=== PATIENT | male | born 1975 | race Caucasian/White ===

== ENCOUNTER 2022-03-27 17:48 | Emergency (ER) | payer BC ==
[2022-03-27 18:11] VITALS: BP 126/84; PULSE 86; O2SAT 98
[2022-03-27] MEDS ORDERED: Adacel Vial IM ONE ×2 (18:54→19:00)
--- NOTE | 2022-03-27 19:00 | ERPHSYRPT ---
- History of Present Illness Source: patient Exam Limitations: no limitations Patient Subjective Stated Complaint: Pt states "I cut my thumb." Triage Nursing Assessment: Pt presented alert and oriented X3, skin wpd. pt ambulates with an upright steady gait, able to speak in clear full sentences pt in no apparent respiratory distress. pt has laceration noteg to left thumb, no bleeding at this time. Physician History: 46 yo wm cut L 1st digit dorsal nail while field stripping a deer. Pt is R handed and denies other injuries. Tetanus to be given in the ER. Pain is minimal. He has a small distal finger split which is old. Occurred: just prior to arrival Method of Injury: incised Quality: other (Mild pain) Severity of Pain-Max: moderate Severity of Pain-Current: mild Extremities Pain Location: thumb: left Modifying Factors: Improves With: nothing Associated Symptoms: none Allergies/Adverse Reactions: cefazolin Allergy (Severe, Verified 03/27/22 18:11) Swelling Home Medications: Tamsulosin HCl 0.4 mg [Flomax 0.4 MG] 0.4 mg PO DAILY 03/27/22 [History] Hx Tetanus, Diphtheria Vaccination/Date Given: No Hx Influenza Vaccination/Date Given: No Hx Pneumococcal Vaccination/Date Given: No Immunizations Up to Date: Yes Travel Risk - International Travel Have you traveled outside of the country in past 3 weeks: No - Coronavirus Screening Are you exhibiting any of the following symptoms?: No Close contact with a COVID-19 positive Pt in past 14-21 Days: No - Vaccine Status Have you recieved a Covid-19 vaccination: No - Review of Systems Constitutional: No Symptoms Eyes: No Symptoms Ears, Nose, & Throat: No Symptoms Respiratory: No Symptoms Cardiac: No Symptoms Abdominal/Gastrointestinal: No Symptoms Genitourinary Symptoms: No Symptoms Skin: No Symptoms Neurological: No Symptoms Psychological: No Symptoms Endocrine: No Symptoms Hematologic/Lymphatic: No Symptoms Immunological/Allergic: No Symptoms - Past Medical History Pertinent Past Medical History: Yes Other Medical History: prostate - Past Surgical History Past Surgical History: Yes Other Surgical History: right hand. chin. right toe. hernia - Social History Smoking Status: Never smoker Exposure to second hand smoke: No Drug Use: none Patient Lives Alone: No - Nursing Vital Signs Nursing Vital Signs: Initial Vital Signs Temperature 97.5 F 03/27/22 18:06 Pulse Rate 86 03/27/22 18:06 Respiratory Rate 20 03/27/22 18:06 Blood Pressure 126/84 03/27/22 18:06 O2 Sat by Pulse Oximetry 98 03/27/22 18:06 Pain Scale Pain Intensity 0 WNL - Physical Exam General Appearance: no apparent distress Eyes, Ears, Nose, Throat Exam: normal ENT inspection, TMs normal, pharynx normal, moist mucous membranes Neck Exam: normal inspection, non-tender, supple, full range of motion, No Brudzinski, No Kernig's, No meningismus, No carotid bruit Cardiovascular/Respiratory Exam: normal breath sounds, regular rate/rhythm, heart sounds normal Abdominal Exam: non-tender, soft Back Exam: normal inspection, normal range of motion, No CVA tenderness, No vertebral tenderness Shoulder Exam: normal inspection, non-tender, no evidence of injury Elbow/Forearm Exam: normal inspection, non-tender, no evidence of injury Wrist Exam: normal inspection, non-tender, no evidence of injury Hand Exam: nail injury (Dorsal laceration, 1cm ,perpendicularly oriented to axis of finger/Good hemostasis/Good distal capillary return and sensation/No need for repair) DTR - Upper Extremity Exam: bicep (R): 2+, bicep (L): 2+ Neuro/Tendon Exam: normal sensation, normal motor functions, normal tendon functions, responds to pain, no evidence tendon injury, No motor deficit, No sensory deficit Mental Status Exam: alert, oriented x 3, cooperative Skin Exam: normal color, warm, dry SpO2 Interpretation: normal SpO2: 98 O2 Delivery: Room Air - Course Nursing assessment & vital signs reviewed: Yes - Progress Progress Note: 03/27/22 19:00 Tdap 03/27/22 19:01 No need for repair or to remove nail. Pt alerted that he might loose nail Counseled pt/family regarding: diagnosis, need for follow-up - Departure Departure Disposition: Home Clinical Impression: Nailbed laceration, finger Condition: Stable Critical Care Time: No Referrals: MARISOL KELLOGG MD [Primary Care Provider] - Follow up/PCP as directed Instructions: Common Finger Injuries (DC) Additional Instructions: Wash laceration with soap/water twice a day Start doxycycline twice a day for 1 week Watch for signs of infection-redness/Increasing pain/pus/temperature greater than 100.5 There is a small possibility that nail will be lost Prescriptions: Doxycycline Monohydrate 100 mg PO BID #14 cap
== END 2022-03-27 19:14 | disposition home or self-care (01) ==
LOC: ED 17:48
DX: S61.112A Laceration without foreign body of left thumb with damage to nail, initial encounter (principal); W26.0XXA Contact with knife, initial encounter; Z79.899 Other long term (current) drug therapy; Z28.310 Unvaccinated for COVID-19
CPT/HCPCS: 90471; 90715; 99282